=== PATIENT | male | born 1940 | race Caucasian/White ===

== ENCOUNTER 2019-06-15 07:21 | Day surgery (SDC) | payer OTHER ==
[~2019-06-15] VITALS: Ht 177.8 cm; Wt 85.0 kg
[2019-06-15] MEDS ORDERED: CARV25 PO (07:53)
[2019-06-15] MEDS ORDERED: Glucophage1000 MG PO (07:53)
[2019-06-15] MEDS ORDERED: ASPI81CH PO (07:54)
[2019-06-15] MEDS ORDERED: Prinivil10 MG PO (07:54)
[2019-06-15] MEDS ORDERED: EUTHYROX150 MCG PO (07:54)
[2019-06-15] MEDS ORDERED: COQ-10100 MG PO (07:55)
[2019-06-15] MEDS ORDERED: ATORVASTATIN CA10 MG PO (07:55)
[2019-06-15] MEDS ORDERED: PANT40 PO (07:55)
[2019-06-15] MEDS ORDERED: TADA10TA (07:56)
--- NOTE | 2019-06-15 14:21 | NUR ---
PT AND S/O VERBALIZES UNDERSTANDING WRITTEN AND VERBAL ORDERS. VSS. NADN. AIR FULLY DEFLATED FROM TR BAND. NO BLEEDING NOTED.
--- NOTE | 2019-06-15 14:43 | NUR ---
PT AMBULATES TO RESTROOM AND BACK WITHOUT DIFF. PT DRESSES SELF WITHOUT DIFF. PT TR BAND REMOVED. DOT DRESSING APPLIED WITH SPLINT/SLING IN PLACE. VSS. NADN. PT TO DC TO HOME VIA WC BY FAMILY.
== END 2019-06-15 15:13 | disposition home or self-care (01) ==
LOC: MHTC 07:21
PROC: B203YZZ Plain Radiography of Multiple Coronary Artery Bypass Grafts using Other Contrast (ICD-10-PCS; principal; 2019-06-15)
PROC: B201YZZ Plain Radiography of Multiple Coronary Arteries using Other Contrast (ICD-10-PCS; principal; 2019-06-15)
PROC: 4A023N7 Measurement of Cardiac Sampling and Pressure, Left Heart, Percutaneous Approach (ICD-10-PCS; principal; 2019-06-15)
PROC: B300YZZ Plain Radiography of Thoracic Aorta using Other Contrast (ICD-10-PCS; principal; 2019-06-15)
DX: I25.10 Atherosclerotic heart disease of native coronary artery without angina pectoris (principal); I25.810 Atherosclerosis of coronary artery bypass graft(s) without angina pectoris; I25.82 Chronic total occlusion of coronary artery; I13.0 Hypertensive heart and chronic kidney disease with heart failure and stage 1 through stage 4 chronic kidney disease, or unspecified chronic kidney disease; E11.22 Type 2 diabetes mellitus with diabetic chronic kidney disease; I50.20 Unspecified systolic (congestive) heart failure; N18.9 Chronic kidney disease, unspecified; I47.1 Supraventricular tachycardia; E66.3 Overweight; N52.9 Male erectile dysfunction, unspecified; I25.5 Ischemic cardiomyopathy; E78.5 Hyperlipidemia, unspecified; E03.9 Hypothyroidism, unspecified; Z79.82 Long term (current) use of aspirin; Z79.84 Long term (current) use of oral hypoglycemic drugs; Z79.899 Other long term (current) drug therapy; Z87.891 Personal history of nicotine dependence; Z68.26 Body mass index [BMI] 26.0-26.9, adult
CPT/HCPCS: 93455; 99152; 99153; C1769; C1894; J1644; J2250; J3010; J7030; Q9967

== ENCOUNTER 2020-06-23 21:46 | Inpatient (IN) | payer OTHER ==
[~2020-06-23] VITALS: Ht 175.3 cm; Wt 94.3 kg
[~2020-06-23 21:46] MED LIST: ASPI81CH PO; ATORVASTATIN CA10 MG PO; CARV25 PO; COQ-10100 MG PO; EUTHYROX150 MCG PO; METF500 PO; PANT40 PO; Prinivil10 MG PO; TADA10TA
[2020-06-23 22:02] LABS: BASOPHILS ABSOLUTE AUTO 0.08 K/mm3 (0.00-0.23); BASOPHILS PERCENT AUTO 1 % (0-2); EOSINOPHILS ABSOLUTE AUTO 0.18 K/mm3 (0.00-0.68); EOSINOPHILS PERCENT AUTO 2 % (0-6); Hematocrit 39.4 % (37.0-53.0); Hemoglobin 13.4 g/dL (13.5-17.5); IMMATURE GRAN ABSOLUTE AUTO 0.05 K/mm3 (0.00-0.10); IMMATURE GRAN PERCENT AUTO 1 % (0-1); LYMPHOCYTES ABSOLUTE AUTO 2.48 K/mm3 (0.84-5.20); LYMPHOCYTES PERCENT AUTO 31 % (21-46); MONOCYTES ABSOLUTE AUTO 0.78 K/mm3 (0.16-1.47); MONOCYTES PERCENT AUTO 10 % (4-13); Mean Corpuscular HGB 29.6 pg (26.0-34.0); Mean Corpuscular Volume 87 fL (80-100); Mean Platelet Volume 10.4 fL (9.1-12.4); NEUTROPHILS ABSOLUTE AUTO 4.37 K/mm3 (1.96-9.15); NEUTROPHILS PERCENT AUTO 55 % (41-73); Platelet Count 203 K/mm3 (150-400); RDW Coefficient Variation 12.7 % (11.7-14.2); RDW Standard Deviation 40.3 fL (35.1-46.3); Red Blood Cell Count 4.52 M/mm3 (4.30-5.90); White Blood Cell Count 7.94 K/mm3 (4.00-11.30)
[2020-06-23 22:16] LABS: International Normalized Ratio 1.04; Prothrombin Time Results 11.1 Sec (9.7-11.5)
[2020-06-23 22:20] LABS: Alanine Aminotransfer (ALT/SGP 29 U/L (12-78); Albumin, Blood 3.9 g/dL (3.4-5.0); Albumin/Globulin Ratio 1.3 (0.8-1.8); Alk Phos 60 U/L (50-136); Anion Gap 6 mmol/L (6-16); Aspartate Aminotrans (AST/SGOT 14 U/L (12-37); Bilirubin, Total 1.3 mg/dL (0.1-1.0); Blood Urea Nitrogen 25 mg/dL (8-24); Bun/Creatinine Ratio 19.8 (12.0-20.0); CO2, Blood 26 mmol/L (21-32); Calcium, Blood 9.4 mg/dL (8.5-10.1); Chloride, Blood 105 mmol/L (98-108); Creatinine, Blood 1.26 mg/dL (0.60-1.20); Globulin, Blood 3.1 g/dL (2.2-4.0); Glomerular Filtration Rate 58 (60-); Glucose, Blood 214 mg/dL (70-99); Potassium, Blood 4.1 mmol/L (3.5-5.5); Sodium, Blood 137 mmol/L (136-145)
[2020-06-23 23:06] LABS: Ethanol (Alcohol), Blood, Med <3 mg/dL
[2020-06-24] MEDS ORDERED: TRIA50 PO (00:23)
--- NOTE | 2020-06-24 02:40 | NUR ---
ASSUMED CARE NOTE: ASSUMED CARE OF PT AT 0240, RECEVIED REPORT FROM ZENOBIA MIRANDA. PT IS ALERT AND ORIENTED TO SELF, ABLE TO FOLLOW DIRECTIONS. PT HAS EXPRESSIVE APHASIA. WILL MOAN AND ANSWER YES/NO QUESTIONS USING HEAD GEASTURES. PT HAS RIGHT SIDE WEAKNESS, RIGHT SIDE FACIAL DROOP AND TWITCH. PT NODS YES WHEN ASKED IF HE HAS SENSATION TO RIGHT ARM AND LEG. NODS "YES" TO NUMBNESS IN RIGHT EXTREMITIES. PT IN SINUS CRISTIANA, HR IN THE 50-60'S. SBP IN THE 160'S .PT DENIES CHEST PAIN/ PAIN/NAUSEA AT THIS TIME. PT IS INCONTINENT OF URINE, CONDOM CATH PLACED TO PREVENT SKIN BREAKDOWN AND TO OBTAIN TOX SCREEN. BED AT LOWEST LEVEL, CALL LIGHT WITHIN REACH. BED ALARM ON. PT REMINDED TO STAY IN BED, TO PREVENT FALLS. WILL CONTINUE TO MONITOR.
[2020-06-24 03:35] LABS: BASOPHILS ABSOLUTE AUTO 0.06 K/mm3 (0.00-0.23); BASOPHILS PERCENT AUTO 1 % (0-2); EOSINOPHILS ABSOLUTE AUTO 0.09 K/mm3 (0.00-0.68); EOSINOPHILS PERCENT AUTO 1 % (0-6); Hemoglobin 13.5 g/dL (13.5-17.5); IMMATURE GRAN ABSOLUTE AUTO 0.06 K/mm3 (0.00-0.10); IMMATURE GRAN PERCENT AUTO 1 % (0-1); LYMPHOCYTES ABSOLUTE AUTO 1.74 K/mm3 (0.84-5.20); LYMPHOCYTES PERCENT AUTO 23 % (21-46); MONOCYTES ABSOLUTE AUTO 0.69 K/mm3 (0.16-1.47); MONOCYTES PERCENT AUTO 9 % (4-13); Mean Corpuscular HGB 29.2 pg (26.0-34.0); Mean Corpuscular HGB Conc 33.8 g/dL (31.5-36.5); Mean Corpuscular Volume 86 fL (80-100); Mean Platelet Volume 10.5 fL (9.1-12.4); NEUTROPHILS ABSOLUTE AUTO 5.08 K/mm3 (1.96-9.15); NEUTROPHILS PERCENT AUTO 66 % (41-73); Platelet Count 204 K/mm3 (150-400); RDW Coefficient Variation 12.8 % (11.7-14.2); Red Blood Cell Count 4.63 M/mm3 (4.30-5.90); White Blood Cell Count 7.72 K/mm3 (4.00-11.30)
[2020-06-24 03:52] LABS: Anion Gap 10 mmol/L (6-16); Blood Urea Nitrogen 24 mg/dL (8-24); Bun/Creatinine Ratio 20.5 (12.0-20.0); CO2, Blood 25 mmol/L (21-32); Calcium, Blood 9.1 mg/dL (8.5-10.1); Chloride, Blood 104 mmol/L (98-108); Creatinine, Blood 1.17 mg/dL (0.60-1.20); Glomerular Filtration Rate >60 (60-); Glucose, Blood 198 mg/dL (70-99); Potassium, Blood 4.2 mmol/L (3.5-5.5); Sodium, Blood 139 mmol/L (136-145)
[2020-06-24 03:53] LABS: CHOL/HDL RATIO 2.7; Cholesterol 131 mg/dL (50-200); HDL Cholesterol 49 mg/dL (>39); LDL/HDL RATIO 1.2; Low Density Lipoprotein Chol 57 mg/dL (0-110); Triglycerides 126 mg/dL (30-160); Very Low Density Lipoprot Chol 25 mg/dL (6-32)
--- NOTE | 2020-06-24 04:14 | NUR ---
PT SAYING A FEW WORDS " YEA, NO, OKAY" PT FACIAL DROOP LESS NOTICABLE. RIGHT FACE TWICHES WHEN PT SMILES. RIGHT ARM STRENGTH INCREASING.
--- NOTE | 2020-06-24 05:52 | NUR ---
SHIFT SUMMARY: SEE PREVIOUS NOTES. PRECEDEX HAS BEEN OFF SINCE 0000. PT HAS BEEN APPROPRIATE. USING CALL LIGHT, WILL GET UP OUT OF BED OCCASIONALLY TO OBTAIN WATER. BUILT A TRUST WITH PATIENT ABLE TO ADMINISTER MEDS, W/O DIFFICULTY. SHOWED PT EVERY MEDICATION AND EXPLAINED HOW THEY WORK, HE WAS AGREEABLE TO ALL. THIS NURSE HAD TO OPEN EACH MEDICATION IN FRONT OF PATIENT AND LET HIM SEE ALL LABELS. PT WALKED TO BEDSIDE TOILET, STEADY GAIT. PT HAS BEEN ON RA WITH SPO2 ABOVE 90 PERCENT. BP STABLE. PT HAS BEEN IN NSR WITH HR IN THE 80'S, UP THE 110 WHEN AMBULATING. WILL CONTINUE TO MONITOR PT UNTIL REPORT IS GIVEN TO ONCOMING SHIFT.
--- NOTE | 2020-06-24 06:15 | NUR ---
ASSUMED CARE NOTE: SEE PREVIOUS NOTES. NO FURTHER CHANGES TO NEURO STATUS. PT HAS BEEN ON RA WITH SPO2 ABOVE 90% HAS BEEN IN NSR WITH HR IN THE 50-60'S, SBP 150-160'S. PT DENIES CP. NO SIGNS/SYMPTOMS OF BLEEDING. -
[2020-06-24 07:17] LABS: U Amphetamine Screen Not Detected; U Barbituate Screen Not Detected; U Benzodiazapine Screen Not Detected; U Buprenorphine Screen Not Detected; U Cannabinoids Screen Not Detected; U Cocaine Screen Not Detected; U Methadone Screen Not Detected; U Methamphetamine Screen Not Detected; U Opiates Screen Not Detected; U Oxycodone Screen Not Detected; U Phencyclidine Screen Not Detected; U Propoxyphene Screen Not Detected
--- NOTE | 2020-06-24 07:30 | NUR ---
ASSUMED CARE: PT RESTING IN BED, RIGHT SIDED FACIAL DROOP AND RIGHT SIDED WEAKNESS OF ARM AND LEG NOTED. PT FOLLOWS INSTRUCTIONS ABLE. UNABLE TO SPEAK MORE THAN SOUNDS AND A FEW WORDS. NSR ON TELE, RA AT THIS TIME. CONDOM CATH IN PLACE AT THIS TIME. BED ALARM IN PLACE, CALL LIGHT IN REACH, BED IN LOW POSITION. FALL RISK LIGHT ON WELL. NO ACUTE NEEDS OR CONCERNS AT THIS TIME.
--- NOTE | 2020-06-24 11:15 | NUR ---
Echocardiogram completed.
--- NOTE | 2020-06-24 14:59 | NUR ---
PT TAKEN TO MRI AT THIS TIME BY TRANSPORT STAFF AND NURSE ESCORT
--- NOTE | 2020-06-24 15:25 | NUR ---
Pt was accompanied to MRI and back again to the unit. Upon return, his was still in the room. Pt vital signs and ECG monitoring reconnected to the pt. He nodded when asked if he was comfortable. asked if he could have some water to drink, commenting that his mouth appearted dry. I explained that he may not be able to swallow safely, but that I could do some oral swabs for his relief of dry mouth. Oral care done per usual fashion with chlorohexidine. Pt made an uncomfortable face, and I asked if he wanted me to continue, and he stated, "No". seemed encouraged to hear him speak. She stated that she lives in [facility] so would be going home soon before it becomes dark. Primary RN Alisha informed of pt's return to room and care given.
--- NOTE | 2020-06-24 15:30 | NUR ---
PT RETURNED FROM MRI
--- NOTE | 2020-06-24 16:30 | NUR ---
HEMP FIBER TAKER OFF ASKED THIS RN TO ASK FOR STATUS CHANGE DUE TO NO CHANGE IN STATUS OR NEURO CHECKS. DR LINDSAY ORDERED PCU STATUS THEN AFTER REVIEWING MRI AND DISCUSSING WITH DR CUI, STATED TO HAVE PT REMAIN ICU STATUS. HEMP FIBER TAKER OFF AND HEEL BOOM OPERATOR AWARE THAT PT IS STILL ICU STATUS.
--- NOTE | 2020-06-24 18:00 | NUR ---
SHIFT SUMMARY: PT REMAINS ICU STATUS S/P TPA. NEURO CHECKS IMPROVED SLIGHTLY THIS SHIFT. WORKED WITH PT/OT AND HAD SOME WEAKNESS TO RIGHT SIDE AND RIGHT SIDED FACIAL DROOP BUT SEEMS IMPROVED FROM THIS AM. POSSIBLE STATUS CHANGE AFTER 24 HOURS POST TPA.
--- NOTE | 2020-06-24 18:39 | NUR ---
PT'S BPS HAVE BEEN TRENDING GREATER THAN 180 SYSTOLIC. HYDRALAZINE GIVEN PER ORDERS WITH NO CHANGE. CALL TO DR LINDSAY TO GET NEW ANTIHYPERTENSIVE. DR LINDSAY TO REVIEW WITH DR CUI AND ORDER FURTHER MEDS.
--- NOTE | 2020-06-24 20:51 | NUR ---
SHIFT ASSESSMENT ASSUMED CARE OF PT @ 1900, REPORT RECV'D FROM BRANDI MIRANDA. PT ALERT, RESTING IN BED. ABLE TO FOLLOW SIMPLE COMMANDS, SHAKES HEAD YES/NO AND MOANS. PTS RIGHT ARM AND LEG CONTINUE TO BE WEAKER THAN LEFT. RIGHT SIDED FACIAL DROOP. NSR ON THE VOCATIONAL GUIDANCE COUNSELOR. BP BORDERLINE HYPERTENSIVE, WILL MEDICATE PER ORDERS FOR HTN. INCONTINENT OF URINE AND STOOL, DEPENDS IN PLACE. BED LOW, CALL LIGHT IN REACH, WILL CONTINUE TO MONITOR.
[2020-06-25 04:05] LABS: BASOPHILS ABSOLUTE AUTO 0.04 K/mm3 (0.00-0.23); BASOPHILS PERCENT AUTO 0 % (0-2); EOSINOPHILS ABSOLUTE AUTO 0.05 K/mm3 (0.00-0.68); EOSINOPHILS PERCENT AUTO 1 % (0-6); Hematocrit 42.8 % (37.0-53.0); Hemoglobin 13.9 g/dL (13.5-17.5); IMMATURE GRAN ABSOLUTE AUTO 0.05 K/mm3 (0.00-0.10); IMMATURE GRAN PERCENT AUTO 1 % (0-1); LYMPHOCYTES ABSOLUTE AUTO 1.48 K/mm3 (0.84-5.20); LYMPHOCYTES PERCENT AUTO 14 % (21-46); MONOCYTES ABSOLUTE AUTO 1.02 K/mm3 (0.16-1.47); MONOCYTES PERCENT AUTO 9 % (4-13); Mean Corpuscular HGB 28.4 pg (26.0-34.0); Mean Corpuscular HGB Conc 32.5 g/dL (31.5-36.5); Mean Corpuscular Volume 87 fL (80-100); Mean Platelet Volume 11.2 fL (9.1-12.4); NEUTROPHILS ABSOLUTE AUTO 8.32 K/mm3 (1.96-9.15); NEUTROPHILS PERCENT AUTO 76 % (41-73); Platelet Count 198 K/mm3 (150-400); RDW Coefficient Variation 12.9 % (11.7-14.2); RDW Standard Deviation 41.1 fL (35.1-46.3); White Blood Cell Count 10.96 K/mm3 (4.00-11.30)
[2020-06-25 04:09] LABS: Anion Gap 9 mmol/L (6-16); Blood Urea Nitrogen 19 mg/dL (8-24); Bun/Creatinine Ratio 17.3 (12.0-20.0); CO2, Blood 24 mmol/L (21-32); Calcium, Blood 8.6 mg/dL (8.5-10.1); Chloride, Blood 107 mmol/L (98-108); Glomerular Filtration Rate >60 (60-); Glucose, Blood 183 mg/dL (70-99); Potassium, Blood 3.6 mmol/L (3.5-5.5); Sodium, Blood 140 mmol/L (136-145)
--- NOTE | 2020-06-25 06:18 | NUR ---
SHIFT SUMMARY PT REMAINS ALERT, NO NEUROLOGICAL CHANGES. CONTINUES TO BE WEAK ON THE RIGHT SIDE. FOLLOWING COMMANDS, ABLE TO ASSIST WITH TURNS. NODS HEAD YES/NO APPROPRIATELY, UNABLE TO RESPOND VERBALLY. WILL MOAN OCCASIONALLY. SBP <180, MEDICATED WITH PRN LABETOLOL. BED IN LOW POSITION, CALL LIGHT IN REACH. WILL CONTINUE TO MONITOR.
--- NOTE | 2020-06-25 08:45 | NUR ---
Dr Rubi in to see patient. States pt may be medical floor status. See shift assessment for full assessment.
--- NOTE | 2020-06-25 18:45 | NUR ---
SUMMARY At this time, pt is medical floor status with telemetry in case he requires IV labetalol. Pt is alert. Follows commands. Answers questions by nodding head to indicate yes/no. Pleasant and cooperative with care. Remains strict NPO. Pt on room air. SR per monitor. BP high but IV antihypertensives not indicated. Incontinent of urine/stool. Attends C/D/I at this time. Will continue to closely monitor until care handoff and bedside report with oncoming RN.
--- NOTE | 2020-06-25 21:30 | NUR ---
ASSUMED PT CARE FROM RUTH OLVERA AT 1915 PT RESTING IN BED. PT NOTED TO HAVE APHASIA; HOWEVER, IT APPEARS PT UNDERSTANDS WHAT IS BEING SAID. ABLE TO ANSWER YES/NO QUESTIONS. CLINIMIX INFUSING AT 100MLS/HR THROUGH 18G PERIPHERAL IV. PT NOTED TO BE INCONTINENT. ATTEND AND LINEN CHANGE PERFORMED AT CHANGE OF SHIFT. CONDOM CATHETER PLACED TO PREVENT MOISTURE ASSOCIATED SKIN DAMAGE. PT ABLE TO HELP REPOSITION SELF IN BED. ABLE TO SHIFT OWN WEIGHT. OVERALL SKIN IS INTACT WITH SCATTERED ABRASIONS TO BLE'S. CALL LIGHT WITHIN REACH WILL CONTINUE TO REASSESS PT'S NEEDS.
[2020-06-26 03:27] LABS: BASOPHILS ABSOLUTE AUTO 0.04 K/mm3 (0.00-0.23); BASOPHILS PERCENT AUTO 0 % (0-2); EOSINOPHILS ABSOLUTE AUTO 0.06 K/mm3 (0.00-0.68); EOSINOPHILS PERCENT AUTO 1 % (0-6); Hematocrit 37.3 % (37.0-53.0); Hemoglobin 12.4 g/dL (13.5-17.5); IMMATURE GRAN ABSOLUTE AUTO 0.04 K/mm3 (0.00-0.10); IMMATURE GRAN PERCENT AUTO 0 % (0-1); LYMPHOCYTES ABSOLUTE AUTO 1.53 K/mm3 (0.84-5.20); LYMPHOCYTES PERCENT AUTO 16 % (21-46); MONOCYTES ABSOLUTE AUTO 1.19 K/mm3 (0.16-1.47); MONOCYTES PERCENT AUTO 12 % (4-13); Mean Corpuscular HGB 29.1 pg (26.0-34.0); Mean Corpuscular HGB Conc 33.2 g/dL (31.5-36.5); Mean Corpuscular Volume 88 fL (80-100); Mean Platelet Volume 10.3 fL (9.1-12.4); NEUTROPHILS ABSOLUTE AUTO 6.84 K/mm3 (1.96-9.15); NEUTROPHILS PERCENT AUTO 71 % (41-73); Platelet Count 178 K/mm3 (150-400); RDW Coefficient Variation 12.8 % (11.7-14.2); RDW Standard Deviation 41.1 fL (35.1-46.3); Red Blood Cell Count 4.26 M/mm3 (4.30-5.90)
[2020-06-26 03:50] LABS: Anion Gap 6 mmol/L (6-16); Blood Urea Nitrogen 23 mg/dL (8-24); Bun/Creatinine Ratio 22.5 (12.0-20.0); CO2, Blood 25 mmol/L (21-32); Calcium, Blood 8.7 mg/dL (8.5-10.1); Chloride, Blood 108 mmol/L (98-108); Creatinine, Blood 1.02 mg/dL (0.60-1.20); Glomerular Filtration Rate >60 (60-); Glucose, Blood 222 mg/dL (70-99); Potassium, Blood 3.8 mmol/L (3.5-5.5); Sodium, Blood 139 mmol/L (136-145)
--- NOTE | 2020-06-26 05:31 | NUR ---
END OF SHIFT SUMMARY PT HAS SLEPT MOST OF NIGHT. LINEN CHANGED TWICE D/T INCONTINENCE; CONDOM CATH PLACED TWICE IN ORDER TO KEEP SKIN CLEAN AND DRY. PT CONTINUES TO HAVE RIGHT SIDED WEAKNESS AND FACIAL DROOP. CLINIMIX INFUSING AT 100MLS/HR. 2 UNITS OF REGULAR INSULIN GIVEN X2 THIS SHIFT. SBP 160'S; NO NEED FOR PRN LABETOLOL. PT REMAINS NPO WITH Q4 ORAL CARES PERFORMED. VERY PLEASANT AND COOPERATIVE WITH CARES. BED ALARM REMAINS ON. WILL CONTINUE TO MONITOR UNTIL REPORT IS HANDED OFF TO ONCOMING RN.
--- NOTE | 2020-06-26 07:46 | NUR ---
Assumed care at 0700. Bedside report recieved from María MIRANDA. Pt alert. Follows directions. Answers yes/no questions by nodding head. Does not use words to communicate. Right sided weakness. Pt strict NPO. Lungs clear t/o. SpO2 90% or greater on room air. Pt has moist, loose cough. Unable to expectorate when instructed to cough. SR per monitor. BP stable. Bed in lowest position. Call light in reach. Bed alarm on.
--- NOTE | 2020-06-26 15:00 | NUR ---
Pt's spouse visiting at bedside. This RN discussed physical therapy's recommendations for patient to go to IRU, which is in [place], per personal caregiver Theresa MIRANDA. Pt's spouse states she is more interested in pt going home with home health. This RN stated this would be helpful for the patient but pt will not reach his full potential as he could with IRU. After about an hour of visiting with the patient, spouse states she would be sad about him going to [place], because she would not be able to visit him, but ultimately "I want to do what is best for his recovery". Pt's spouse acknowledges that patient is far from his pre-CVA baseline and will require a lot of therapy. This RN reassured spouse that she and the patient have more time to think about this decision, but going to IRU will give the patient the best chance to reach his maximum potential. While spouse was in room with the patient, pt's wet cough was discussed. This RN educated patient's spouse on helping the patient use flutter valve to encourage cough and expectoration. Pt used flutter valve held by this RN. Pt's spouse vebalized understanding and agreed to help patient with this task, however this RN did not observe pt's spouse helping patient to accomplish this task.
--- NOTE | 2020-06-26 19:05 | NUR ---
SUMMARY Pt OOB three times this shift. Once for shower and twice for chair. Pt remains alert, follows commands, and communicates by nodding head to indicate yes/no. Pt has audible rattles with respirations, suctioned mouth with yankauer- unable to retrieve secretions. This RN worked with patient several times to deep breathe, cough, and use IS/flutter valve. Pt uses flutter valve without difficulty but struggles to use incentive spirometer, respirations shallow. This RN placed call to Dr Mendoza to update and notify of low grade temp. CXR to be obtained and scopalamine patch to be placed. Inquired about ABX, provider does not want to start antibiotics at this time. Pt remains incontinent of urine and stool. SR per monitor. Plan for pt to transfer to room 301
--- NOTE | 2020-06-26 19:42 | NUR ---
Pt transferred to room 301 accompanied by this RN and PCT [place]. Scopolamine patch has not arrived from pharmacy prior to pt transfer. Oncoming nurse, Faustino, aware that pt needs patch. This RN notified pharmacy of pt's new location. Chart, medications, and belongings tranferred with patient. Clinimix and lipids continued on transfer.
--- NOTE | 2020-06-26 19:56 | NUR ---
ICU 05 TRANSFER. JANAE ASSISTANT DEPARTMENT MANAGER PRESENT IN ROOM. PATIENT ARRIVED VIA W/C. PERSONAL BELONGINGS, CHART, AND MEDICATION SENT. CLINIMIX-LIPIDS INFUSING. NPO AND NON-VERBAL USING HEAD NODS FOR YES/NO.
--- NOTE | 2020-06-26 22:35 | NUR ---
TRANSERM-SCOP PATCH ORDERED BY PHARMACOMETRICIAN JANAE 18:40 FOR THE MEDICAL FLOOR. PHARMACY HAS NOT SENT THE PATCH AFTER THREE VERBAL ATTEMPTS AND TWO FAX. STILL PENDING.
--- NOTE | 2020-06-26 22:52 | NUR ---
PHARMACY SENT TRANSERM-SCOP PATCH JUST OVER FOUR HOURS LATE FROM INITIAL ORDER BY RESOLUTION AGENT JANAE.
--- NOTE | 2020-06-27 03:43 | NUR ---
SHIFT SUMMARY PATIENT HAD NO ACUTE CHANGES OBSERVED. AXOX 3 NON-VERBAL USING HEAD NODS FOR YES/NO QUESTIONS. NPO. PIVS REMAINS INTACT. IV CLINIMIX INFUSING AT 80 mL/HR. LIPIDS FINISHED INFUSING AT 25 mL/HR. CONE WINDER REPORTS SB 58. TRANSERM-SCOP PATCH PLACED PER EMAR. CBG Q6 205 FOR MIDNIGHT. PERMISSIVE HYPERTENSION 169/80. DENIES PAIN, SOB, AND N/V. AFEBRILE. CALL LIGHT IN REACH. BED IN LOWEST POSITION AND ALARM ACTIVATED. WILL CONTINUE TO MONITOR UNTIL DAY SHIFT NURSE ASSUMES CARE.
[2020-06-27 05:07] LABS: BASOPHILS ABSOLUTE AUTO 0.06 K/mm3 (0.00-0.23); BASOPHILS PERCENT AUTO 1 % (0-2); EOSINOPHILS ABSOLUTE AUTO 0.17 K/mm3 (0.00-0.68); EOSINOPHILS PERCENT AUTO 2 % (0-6); Hematocrit 37.9 % (37.0-53.0); Hemoglobin 12.7 g/dL (13.5-17.5); IMMATURE GRAN ABSOLUTE AUTO 0.06 K/mm3 (0.00-0.10); IMMATURE GRAN PERCENT AUTO 1 % (0-1); LYMPHOCYTES ABSOLUTE AUTO 1.56 K/mm3 (0.84-5.20); LYMPHOCYTES PERCENT AUTO 17 % (21-46); MONOCYTES ABSOLUTE AUTO 1.08 K/mm3 (0.16-1.47); MONOCYTES PERCENT AUTO 12 % (4-13); Mean Corpuscular HGB 29.9 pg (26.0-34.0); Mean Corpuscular HGB Conc 33.5 g/dL (31.5-36.5); Mean Corpuscular Volume 89 fL (80-100); Mean Platelet Volume 11.1 fL (9.1-12.4); NEUTROPHILS ABSOLUTE AUTO 6.25 K/mm3 (1.96-9.15); NEUTROPHILS PERCENT AUTO 68 % (41-73); Platelet Count 169 K/mm3 (150-400); RDW Coefficient Variation 12.7 % (11.7-14.2); RDW Standard Deviation 41.1 fL (35.1-46.3); Red Blood Cell Count 4.25 M/mm3 (4.30-5.90); White Blood Cell Count 9.18 K/mm3 (4.00-11.30)
[2020-06-27 05:24] LABS: Anion Gap 8 mmol/L (6-16); Blood Urea Nitrogen 26 mg/dL (8-24); Bun/Creatinine Ratio 28.2 (12.0-20.0); CO2, Blood 23 mmol/L (21-32); Calcium, Blood 8.8 mg/dL (8.5-10.1); Chloride, Blood 106 mmol/L (98-108); Creatinine, Blood 0.92 mg/dL (0.60-1.20); Glomerular Filtration Rate >60 (60-); Glucose, Blood 219 mg/dL (70-99); Magnesium, Blood 1.9 mg/dL (1.6-2.4); Phosphorus, Blood 3.1 mg/dL (2.5-4.9); Potassium, Blood 3.7 mmol/L (3.5-5.5); Sodium, Blood 137 mmol/L (136-145)
--- NOTE | 2020-06-27 19:14 | NUR ---
SHIFT SUMMARY: NO ACUTE EVENTS, NO CHANGES TO NEURO EXAM. ATTEMPTS TO SPEAK, IS ABLE TO ANSWER YES OR NO QUESTIONS. NPO, RECEIVING CLINIMIX. AMBULATED WITH PHYSICAL THERAPY TODAY, 1 PERSON ASSIST WITH GAIT BELT. TOLERATING ORAL CARE. DENIED PAIN.
[2020-06-28 04:35] LABS: BASOPHILS ABSOLUTE AUTO 0.05 K/mm3 (0.00-0.23); BASOPHILS PERCENT AUTO 1 % (0-2); EOSINOPHILS ABSOLUTE AUTO 0.21 K/mm3 (0.00-0.68); EOSINOPHILS PERCENT AUTO 2 % (0-6); Hematocrit 38.3 % (37.0-53.0); Hemoglobin 12.9 g/dL (13.5-17.5); IMMATURE GRAN ABSOLUTE AUTO 0.08 K/mm3 (0.00-0.10); IMMATURE GRAN PERCENT AUTO 1 % (0-1); LYMPHOCYTES ABSOLUTE AUTO 1.27 K/mm3 (0.84-5.20); LYMPHOCYTES PERCENT AUTO 14 % (21-46); MONOCYTES ABSOLUTE AUTO 0.96 K/mm3 (0.16-1.47); MONOCYTES PERCENT AUTO 11 % (4-13); Mean Corpuscular HGB 29.3 pg (26.0-34.0); Mean Corpuscular HGB Conc 33.7 g/dL (31.5-36.5); Mean Corpuscular Volume 87 fL (80-100); NEUTROPHILS ABSOLUTE AUTO 6.43 K/mm3 (1.96-9.15); NEUTROPHILS PERCENT AUTO 71 % (41-73); Platelet Count 189 K/mm3 (150-400); RDW Coefficient Variation 12.4 % (11.7-14.2); RDW Standard Deviation 39.5 fL (35.1-46.3); Red Blood Cell Count 4.41 M/mm3 (4.30-5.90)
[2020-06-28 04:51] LABS: Anion Gap 9 mmol/L (6-16); Blood Urea Nitrogen 27 mg/dL (8-24); Bun/Creatinine Ratio 29.9 (12.0-20.0); CO2, Blood 23 mmol/L (21-32); Calcium, Blood 8.7 mg/dL (8.5-10.1); Chloride, Blood 104 mmol/L (98-108); Glomerular Filtration Rate >60 (60-); Glucose, Blood 232 mg/dL (70-99); Magnesium, Blood 1.9 mg/dL (1.6-2.4); Phosphorus, Blood 3.1 mg/dL (2.5-4.9); Potassium, Blood 3.7 mmol/L (3.5-5.5); Sodium, Blood 136 mmol/L (136-145)
--- NOTE | 2020-06-28 05:42 | NUR ---
OUTSIDE PLANT SUPERVISOR SUMMARY NO ACUTE CHANGES THIS SHIFT. PT AAOX3, ABLE TO SPEAK SOME ONE WORD ANSWERS (MOSTLY YES/NO) BUT MOSTLY NODS HEAD TO ANSWER. RIGHT SIDE WEAKNESS STILL NOTED, VERY LITTLE STRENGTH ON THAT SIDE. REMAINS NPO AND ON IV CLINIMIX AND LIPIDS. CBG Q6 AVG LOW 200'S TONIGHT. PT DENIES PAIN, SOB, CP. VSS, WILL CONTINUE TO MONITOR.
--- NOTE | 2020-06-28 10:31 | NUR ---
PATIENT NO LONGER NPO. PER T.O. FROM DR. LINDSAY, CHANGED BLOOD GLUCOSE CHECKS TO ACHS ALONG WITH INSULIN SCHEDULE. EMAR UPDATED.
--- NOTE | 2020-06-28 10:32 | NUR ---
NEURO CHECK FREQUENCY RECEIVED T.O. FROM DR. LINDSAY TO CHANGE FREQUENCY OF NEURO CHECKS TO Q8H
--- NOTE | 2020-06-28 17:38 | NUR ---
Shift Summary A/O. Pleasant and cooperative. visited. 1-2p TQ2. Neuro assesment remains unchanged. Worked with PT today. Tele: SR first degree BBB @ 63. Continues to have R sided weakness, answers questions with nods, hand gestures, and grunts. Patient tolerating PO intake, diet changed to Puree and feeder. Denies pain, nausea, vomiting, shortness of breath. Blood sugars ACHS. PO intake still minimal. No acute changes, WCTM.
--- NOTE | 2020-06-28 19:20 | NUR ---
AWAKE. WATCHING TV. DENIED PAIN. DENIED LOSS OF FEELING IN ALL 4 EXT, BUT WHEN REQUESTIONED RE RIGHT ARM, SEEMED TO ACKNOWLEGDE SOME LOSS OF RIGHT ARM. CALL LIGHT IN REACH
--- NOTE | 2020-06-29 03:17 | NUR ---
SHIFT SUMMARY HAS BEEN RESTING QUIETLY WITH FEW INTERRUPTIONS. TPN INFUSING PER MD ORDERS, LIPIDS FINISHED INFUSING. RIGHT SIDE REMAINS FLACCID. DENIED PAIN WHEN ASKED. CALL LIGHT IN REACH.
--- NOTE | 2020-06-29 04:13 | NUR ---
ATTEMPTED TO CLIMB OUT OF BED, ROLLED OVER TO THE EDGE, SETTING OFF ALARM, STAFF CAUGHT HIM BEFORE HE FELL OUT OF BED. PT REPOSITIONED BACK IN BED AND LAUGHED WHEN CONFRONTED RE TRYING TO GET OUT OF BED. RAIL UP ON AFFECTED SIDE. BED ALARM BACK ON AND CALL LIGHT IN REACH
[2020-06-29 04:41] LABS: BASOPHILS ABSOLUTE AUTO 0.08 K/mm3 (0.00-0.23); BASOPHILS PERCENT AUTO 1 % (0-2); EOSINOPHILS PERCENT AUTO 2 % (0-6); Hematocrit 39.6 % (37.0-53.0); Hemoglobin 13.3 g/dL (13.5-17.5); IMMATURE GRAN PERCENT AUTO 1 % (0-1); LYMPHOCYTES ABSOLUTE AUTO 1.35 K/mm3 (0.84-5.20); LYMPHOCYTES PERCENT AUTO 15 % (21-46); MONOCYTES ABSOLUTE AUTO 1.02 K/mm3 (0.16-1.47); MONOCYTES PERCENT AUTO 11 % (4-13); Mean Corpuscular HGB 28.9 pg (26.0-34.0); Mean Corpuscular HGB Conc 33.6 g/dL (31.5-36.5); Mean Corpuscular Volume 86 fL (80-100); Mean Platelet Volume 10.9 fL (9.1-12.4); NEUTROPHILS ABSOLUTE AUTO 6.53 K/mm3 (1.96-9.15); NEUTROPHILS PERCENT AUTO 70 % (41-73); Platelet Count 197 K/mm3 (150-400); RDW Coefficient Variation 12.4 % (11.7-14.2); RDW Standard Deviation 38.7 fL (35.1-46.3); White Blood Cell Count 9.28 K/mm3 (4.00-11.30)
[2020-06-29 04:58] LABS: Anion Gap 11 mmol/L (6-16); Blood Urea Nitrogen 26 mg/dL (8-24); Bun/Creatinine Ratio 29.6 (12.0-20.0); CO2, Blood 21 mmol/L (21-32); Calcium, Blood 8.7 mg/dL (8.5-10.1); Chloride, Blood 102 mmol/L (98-108); Creatinine, Blood 0.88 mg/dL (0.60-1.20); Glomerular Filtration Rate >60 (60-); Glucose, Blood 254 mg/dL (70-99); Magnesium, Blood 1.9 mg/dL (1.6-2.4); Phosphorus, Blood 2.8 mg/dL (2.5-4.9); Potassium, Blood 3.6 mmol/L (3.5-5.5); Sodium, Blood 134 mmol/L (136-145)
--- NOTE | 2020-06-29 10:34 | NUR ---
MEDS CHANGED TO PO PATIENT IS NOW ON PUREE DIET. RECEIVED T.O. FROM DR. CARBAJAL TO CHANGED IL ASPIRIN TO PO AND IV LEVOTHYROXINE TO PO. ORDERS UPDATED.
--- NOTE | 2020-06-29 18:39 | NUR ---
Shift Summary Patient able to follow directions. A/O, when speaking in sentences, patient mumbles. Yes/No responses are clear. Patient states no feeling to R arm except pain when pricking with lancet for blood sugar checks. 1-2p change and reposition. Tele: SR 67 PVC's First Degree BBB. New scopolamine patch applied to L ear. Movement in R leg improved some compared to yesterday. ROM done to R extremities. Appetite remains minimal. Continuous TPN @ 96. visited, update provided. Denies pain, nausea. Puree diet, feeder. WCTM.
--- NOTE | 2020-06-29 19:13 | NUR ---
AWAKE AT ROUNDING. TPN INFUSING AT 96 ML/HR PER MD ORDERS. HOB ELEVATED, RESPS EVEN. INSTRUCTED NOT TO ATTEMPT TO CLIMB OUT OF BED - TO USE CALL LIGHT FOR ASSIST. PT LAUGHED. CALL LIGHT IN REACH. BED ALARM ON.
--- NOTE | 2020-06-30 02:57 | NUR ---
SHIFT SUMMARY HAS BEEN RESTING QUIETLY WITH FEW INTERRUPTIONS. AWAKENED FOR INCONTINENCE CARE AND REPOSITIONING. RIGHT ARM ELEVETED ON PILLOW. TPN INFUSING AT 96 ML/HR PER MD ORDERS. NO NOTED ATTEMPTS TO CLIMB OUT OF BED. CALL LIGHT IN REACH. NO NOTED CHANGE IN NEURO ASSESSMENT THIS SHIFT.
[2020-06-30 05:04] LABS: Anion Gap 7 mmol/L (6-16); Blood Urea Nitrogen 25 mg/dL (8-24); Bun/Creatinine Ratio 27.9 (12.0-20.0); CO2, Blood 24 mmol/L (21-32); Calcium, Blood 8.5 mg/dL (8.5-10.1); Chloride, Blood 103 mmol/L (98-108); Glomerular Filtration Rate >60 (60-); Glucose, Blood 248 mg/dL (70-99); Sodium, Blood 134 mmol/L (136-145)
--- NOTE | 2020-06-30 14:28 | NUR ---
permission to provide care do rojas [facility] [place] student nurse recieved permission to provide care on 06/30/2020
--- NOTE | 2020-06-30 20:40 | NUR ---
AWAKE. TPN INFUSING AT 96 ML/HR. DENIES PAIN. CALL LIGHT IN REACH. INSTRUCTED TO USE CALL LIGHT.
--- NOTE | 2020-07-01 03:21 | NUR ---
SHIFT SUMMARY HAS BEEN RESTING QUIETLY WITH OCCASIONAL AWAKENINGS AFTER HS. SAID AWAKENINGS INCLUDED REPOSITOINING, CLEANING POST INCONT OF URINE AND LINEN CHANGES. NO NOTED ATTEMPTS TO GET OUT OF BED WITHOUT ASSIST. TPN CONTINUES TO INFUSE AT 96 ML/HR FOR NUTRITION. HOB REMAINS ELEVATED FOR COMFORT. CALL LIGHT IN REACH. NO NOTED CHANGES IN NEURO ASSESSMENTS FROM THAT OF 24 HR AGO.
[2020-07-01 05:08] LABS: Anion Gap 9 mmol/L (6-16); Blood Urea Nitrogen 27 mg/dL (8-24); Bun/Creatinine Ratio 28.1 (12.0-20.0); CO2, Blood 24 mmol/L (21-32); Calcium, Blood 8.8 mg/dL (8.5-10.1); Chloride, Blood 102 mmol/L (98-108); Creatinine, Blood 0.96 mg/dL (0.60-1.20); Glomerular Filtration Rate >60 (60-); Glucose, Blood 254 mg/dL (70-99); Potassium, Blood 4.1 mmol/L (3.5-5.5); Sodium, Blood 135 mmol/L (136-145)
--- NOTE | 2020-07-01 18:50 | NUR ---
PT NPO AFTER MODIFIED BARIUM SWALLOW, DR CUI SPOKE WITH SPOUSE REGARDING PEG TUBE PLACEMENT, GI CONSULT CALLED TO DR HUA. PT REMAINS ON PPN AT 96ML/HR. NO ACUTE CHANGES NOTED. WILL CONTINUE TO MONITOR AND REPORT TO ONCOMING RN
--- NOTE | 2020-07-01 20:45 | NUR ---
BP 168/108. ORDERS FOR BP MED ARE TO HOLD MED UNTIL SBP 180. WILL CONTINUE TO MONITOR. ASYMPTOMATIC AT THIS TIME. CALL LIGHT IN REACH, TPN INFUSING.
--- NOTE | 2020-07-02 03:36 | NUR ---
SHIFT SUMMARY HAS BEEN RESTING QUIETLY, NO NOTED ATTEMPTS TO GET OUT OF BED. PPN INFUSING AT 96 ML/HR. HOB REMAINS ELEVATED FOR COMFORT. NOTE OCCASIONAL EXP WHEEZE. REPOSITOINED AND CHANGED WHEN INCONT OF URINE, ETC. CURRENTLY RESTING QUIETLY WITH CALL LIGHT IN REACH
[2020-07-02 04:48] LABS: BASOPHILS ABSOLUTE AUTO 0.11 K/mm3 (0.00-0.23); BASOPHILS PERCENT AUTO 1 % (0-2); EOSINOPHILS ABSOLUTE AUTO 0.14 K/mm3 (0.00-0.68); EOSINOPHILS PERCENT AUTO 1 % (0-6); Hemoglobin 13.3 g/dL (13.5-17.5); IMMATURE GRAN ABSOLUTE AUTO 0.17 K/mm3 (0.00-0.10); IMMATURE GRAN PERCENT AUTO 2 % (0-1); LYMPHOCYTES ABSOLUTE AUTO 1.82 K/mm3 (0.84-5.20); LYMPHOCYTES PERCENT AUTO 18 % (21-46); MONOCYTES ABSOLUTE AUTO 1.43 K/mm3 (0.16-1.47); MONOCYTES PERCENT AUTO 14 % (4-13); Mean Corpuscular HGB 29.3 pg (26.0-34.0); Mean Corpuscular HGB Conc 34.1 g/dL (31.5-36.5); Mean Corpuscular Volume 86 fL (80-100); Mean Platelet Volume 11.4 fL (9.1-12.4); NEUTROPHILS ABSOLUTE AUTO 6.55 K/mm3 (1.96-9.15); NEUTROPHILS PERCENT AUTO 64 % (41-73); Platelet Count 219 K/mm3 (150-400); RDW Coefficient Variation 12.6 % (11.7-14.2); RDW Standard Deviation 39.5 fL (35.1-46.3); Red Blood Cell Count 4.54 M/mm3 (4.30-5.90); White Blood Cell Count 10.22 K/mm3 (4.00-11.30)
[2020-07-02 05:01] LABS: Anion Gap 8 mmol/L (6-16); Blood Urea Nitrogen 28 mg/dL (8-24); CO2, Blood 24 mmol/L (21-32); Calcium, Blood 8.8 mg/dL (8.5-10.1); Chloride, Blood 102 mmol/L (98-108); Creatinine, Blood 0.97 mg/dL (0.60-1.20); Glomerular Filtration Rate >60 (60-); Glucose, Blood 284 mg/dL (70-99); Potassium, Blood 4.3 mmol/L (3.5-5.5); Sodium, Blood 134 mmol/L (136-145)
--- NOTE | 2020-07-02 18:14 | NUR ---
SHIFT SUMMARY PT WORKED WITH PHYSICAL AND OCCUPATIONAL THERAPY TODAY. PT WAS UP IN CHAIR FOR A LOT OF THE SHIFT. 1-2 PERSON TRANSFER TO CHAIR/BED. PPN INFUSING WITHOUT DIFFICULTY. PT TRIES TO TALK WITH STAFF BUT DIFFICULT TO UNDERSTAND. PT SHAKES HEAD YES/NO FOR SOME QUESTIONS. PLANS FOR PEG TUBE PLACEMENT TOMORROW. NO ACUTE CHANGES THIS SHIFT. CALL LIGHT IN REACH. WILL CONTINUE TO MONITOR AND REPORT TO ONCOMING RN.
--- NOTE | 2020-07-02 20:18 | NUR ---
ASSUMED CARE. AOX3, APHAGIA ABLE TO FORM JUST A HANDFUL OF WORDS WHEN SPEAKING SLOW. YES AND NO ARE HIS MAIN ANSWERS. DOES TRY AND TALK BUT IS UNABLE TO HAVE CLEAR SPEECH, RIGHT SIDE FACIAL DROOP, TONGUE DEVIATES TO THE RIGHT. ORAL CARE PROVIDED. RIGHT ARM FLACCID. RIGHT LEG SLIGHT DORSAL FLEXION AND EXTENTION, ABLE TO LIFT LEG ABOUT AN INCH OFF THE BED. UNABLE TO WRITE CLEAR. NO VISION CHANGES NOTED. DENIES ANY DISCOMFORT. BLOOD SUGAR 301 MEDICATED WITH SLIDING SCALE AND LONG ACTING INSULIN. PPE INFUSING WELL. WILL CONTINUE TO MONITOR. ABLE TO USE CALL LIGHT APPROPRIATLY.
--- NOTE | 2020-07-03 05:19 | NUR ---
SHIFT SUMMARY: NO NEUROLOGICAL CHANGES. STILL HAVING TROUBLE GETTING WORDS TO FORM, CAN SAY A FEW WHEN SPEAKING SLOWLY. DOES HAVE SOME PICTURE BOARD SIGN IN THERE TO HELP WITH SIMPLE NEEDS. WILL ANSWER YES AND NO QUESTIONS. ABLE TO MOVE RIGHT LEG AN INCH OFF THE BED. RIGHT ARM STILL FLACCID. NO CHANGE IN FACIAL DROOP OR TONGUE DEVIATION. PPN CONTINUES TO INFUSE WITH NO DIFFICULTY. MEDICATED FOR HYPERGLYCEMIA OF 301 LAST NIGHT. VS WNL, AFEBRILE. CALL LIGHT IN REACH.
[2020-07-03 05:40] LABS: BASOPHILS ABSOLUTE AUTO 0.09 K/mm3 (0.00-0.23); BASOPHILS PERCENT AUTO 1 % (0-2); EOSINOPHILS ABSOLUTE AUTO 0.01 K/mm3 (0.00-0.68); EOSINOPHILS PERCENT AUTO 0 % (0-6); Hematocrit 40.8 % (37.0-53.0); Hemoglobin 13.7 g/dL (13.5-17.5); IMMATURE GRAN ABSOLUTE AUTO 0.35 K/mm3 (0.00-0.10); IMMATURE GRAN PERCENT AUTO 2 % (0-1); LYMPHOCYTES ABSOLUTE AUTO 1.45 K/mm3 (0.84-5.20); LYMPHOCYTES PERCENT AUTO 10 % (21-46); MONOCYTES ABSOLUTE AUTO 1.43 K/mm3 (0.16-1.47); MONOCYTES PERCENT AUTO 10 % (4-13); Mean Corpuscular HGB 29.6 pg (26.0-34.0); Mean Corpuscular HGB Conc 33.6 g/dL (31.5-36.5); Mean Corpuscular Volume 88 fL (80-100); Mean Platelet Volume 11.9 fL (9.1-12.4); NEUTROPHILS PERCENT AUTO 77 % (41-73); Platelet Count 216 K/mm3 (150-400); RDW Coefficient Variation 12.8 % (11.7-14.2); RDW Standard Deviation 40.7 fL (35.1-46.3); Red Blood Cell Count 4.63 M/mm3 (4.30-5.90); White Blood Cell Count 14.33 K/mm3 (4.00-11.30)
[2020-07-03 05:59] LABS: Bun/Creatinine Ratio 32.3 (12.0-20.0); Calcium, Blood 9.1 mg/dL (8.5-10.1); Creatinine, Blood 1.24 mg/dL (0.60-1.20); Potassium, Blood 5.2 mmol/L (3.5-5.5)
[2020-07-03 15:10] LABS: Influenza A, PCR Negative (NEGATIVE); Influenza B, PCR Negative (NEGATIVE); Resp Syncytial Virus, PCR Negative (NEGATIVE); SARS-Cov-2 (COVID-19) PCR, MMC Negative (NEGATIVE)
--- NOTE | 2020-07-03 15:13 | NUR ---
07/03/20 1513 Delores Suarez History, Chart, Medications and Allergies reviewed before start of procedure.SEE ANESTHESIA RECORD CARE BY . 3-LEAD EKG REVIEWED WITH PHYSICIAN PRIOR TO START OF PROCEDURE.MONITOR INTACT WITH CONTINUOUS PULSE OXIMETRY AND INTERMITTENT BP.O2 VIA N/C INTACT THROUGHOUT SEDATION/PROCEDURE.Bite Block Placed.
--- NOTE | 2020-07-03 15:48 | NUR ---
TRANSFER PT WENT FOR PEG TUBE PLACEMENT AND WAS SENT TO PCU AFTER PROCEDURE. THIS RN GAVE REPORT TO RUTH CUMMINGS. PT'S BELONGINGS WILL BE TAKEN DOWN TO PCU6. PT'S IN ROOM WITH PT.
--- NOTE | 2020-07-03 16:00 | NUR ---
PT BROUGHT TO PCU 6 FROM DAY SURGERY HE WENT INTO AFIB WITH RVR AND COULD NOT PLACE PEG TUBE, WILL GIVE LOPRESSOR ORDERED, DAY SURG CALLED AND GAVE VERBAL ORDER FOR NG PLACEMENT FOR THE PURPOSE OF PEG TUBE WITH DR. MANRIQUE, IS HERE, AND UNDERSTANDS WHAT IS GOING ON. CALL LIGHT IN REACH.
[2020-07-03 16:20] LABS: Bun/Creatinine Ratio 34.1 (12.0-20.0); Creatinine, Blood 1.29 mg/dL (0.60-1.20); Potassium, Blood 5.3 mmol/L (3.5-5.5)
--- NOTE | 2020-07-03 17:04 | NUR ---
PT HAD NG PLACED FOR PROCEDURE BY DR. MANRIQUE, PLACEMENT VERIFIED BY PULLING GASTRIC FLUIDS BACK. PT WILL BE LEAVING FOR PEG TUBE PLACEMENT ANY TIME. CALL LIGHT IN REACH.
--- NOTE | 2020-07-03 18:43 | NUR ---
PT RETURNED FROM PEG TUBE PLACEMENT, DOING OK, V.S. STABLE, HEART RATE IN THE 140'S, DR. BULLOCK WAS CALLED AND RECIEVED ORDER FOR DILTIAZEM PUSH. PEG TUBE LOOKS GOOD, CALL LIGHT IN REACH.
--- NOTE | 2020-07-03 22:03 | NUR ---
CARE ASSUMTION NOTE PT LATHARGIC, AROUSES TO VERBAL STIMULI. PT IS APHAGIC. A-FIB AT 130'S AND GAVE A 15MG CARDIZEM IV PUSH. HEART RATE WENT DOWM TO 80-90'S. INCREASED BACK UP T0 130'S, CALLED CLIN NURSE SPEC KORTNEY TO NOTIFY. CLIN NURSE SPEC WITH NO NEW ORDERS AT THIS TIME. PT IS ON 3L O2 BY NC. PT BED REST. WILL CONTNUE TO MONITOR.
[2020-07-03 22:29] LABS: Calcium, Blood 8.9 mg/dL (8.5-10.1); Creatinine, Blood 1.86 mg/dL (0.60-1.20); Potassium, Blood 6.5 mmol/L (3.5-5.5)
[2020-07-04 03:31] LABS: BASOPHILS PERCENT AUTO 1 % (0-2); EOSINOPHILS PERCENT AUTO 0 % (0-6); Hematocrit 40.7 % (37.0-53.0); Hemoglobin 13.4 g/dL (13.5-17.5); IMMATURE GRAN ABSOLUTE AUTO 0.58 K/mm3 (0.00-0.10); IMMATURE GRAN PERCENT AUTO 3 % (0-1); LYMPHOCYTES ABSOLUTE AUTO 2.38 K/mm3 (0.84-5.20); LYMPHOCYTES PERCENT AUTO 13 % (21-46); MONOCYTES ABSOLUTE AUTO 1.64 K/mm3 (0.16-1.47); MONOCYTES PERCENT AUTO 9 % (4-13); Mean Corpuscular HGB 28.9 pg (26.0-34.0); Mean Corpuscular HGB Conc 32.9 g/dL (31.5-36.5); Mean Corpuscular Volume 88 fL (80-100); Mean Platelet Volume 11.7 fL (9.1-12.4); NEUTROPHILS ABSOLUTE AUTO 13.99 K/mm3 (1.96-9.15); NEUTROPHILS PERCENT AUTO 75 % (41-73); NRBC ABSOLUTE 0.07 K/mm3 (0.00-0.02); NRBC Auto 0.4 /100 WBC (0.0-0.2); Platelet Count 169 K/mm3 (150-400); RDW Standard Deviation 41.4 fL (35.1-46.3); Red Blood Cell Count 4.64 M/mm3 (4.30-5.90); White Blood Cell Count 18.69 K/mm3 (4.00-11.30)
[2020-07-04 03:49] LABS: Anion Gap 11 mmol/L (6-16); Blood Urea Nitrogen 60 mg/dL (8-24); Bun/Creatinine Ratio 33.9 (12.0-20.0); CO2, Blood 18 mmol/L (21-32); Calcium, Blood 9.2 mg/dL (8.5-10.1); Chloride, Blood 105 mmol/L (98-108); Creatinine, Blood 1.77 mg/dL (0.60-1.20); Glomerular Filtration Rate 39 (60-); Glucose, Blood 259 mg/dL (70-99); Phosphorus, Blood 5.5 mg/dL (2.5-4.9); Potassium, Blood 5.4 mmol/L (3.5-5.5); Sodium, Blood 134 mmol/L (136-145)
--- NOTE | 2020-07-04 06:54 | NUR ---
SHIFT SUMMARY PT HAS BEEN VERY SLEEPY THROUGHOUT SHIFT. 3L NC SATS @ >92%. A-FIB @ 80-S -130'S. SCHEDULED IV CARDIZEM GIVEN X1 & PRN IV LOPRESSOR GIVEN X2 THIS SHIFT. BEDREST. SEEN BY RAIL SPLITTER LAST NIGHT DUE TO HIGH POTASSIUM AND HIGH HEART RATE. INFUSED 500 ML BOLUS OF NS, CALCIUM GLUCONATE AND GIVEN INSULIN AND DEXTROSE BOLUS PER ORDERS.
[2020-07-04 10:43] LABS: Blood, Urine Neg (Neg); Glucose Qualitative, Urine Neg (Neg); Ketones, Urine 3+ (Neg); Leukocyte Esterase, Urine 1+ (Neg); Nitrite, Urine Neg (Neg); Protein, Urine 2+ (Neg); Urobilinogen, Urine 2+ (Normal)
[2020-07-04 10:50] LABS: Appearance, Urine Hazy (Clear); Bilirubin, Urine 1+ (Neg); Color, Urine Yellow (P-Yellow)
[2020-07-04 10:51] LABS: Bacteria Rare /hpf; Red Blood Cells, Urine 0-2 /hpf (0-2); Squamous Epithelial Cells Not Seen /hpf (Few); White Blood Cells, Urine 0-2 /hpf (0-5)
--- NOTE | 2020-07-04 16:06 | NUR ---
INITIAL AND BRIEF PAL CARE VISIT - Joint visit made with Dr Rubi to pt's room. Pt's is at the bedside and RN tending to pt during our visit. Medical student was also present. had reviewed current status and concerning developments, current plan of care with . Dr reviewed code status and pt's wishes with . Pt was extremely dyspnic and not participatory in the conversation. He had a deeply furrowed brow and appeared restless and anxious, although not awake and eyes remained closed except for a flutter of eye lids at times. Pt had nonverbal indicators of pain noted. Radiology dept waiting outside room for stat CT ordered this afternoon. Pt is new to me and and I am completely unfamiliar with his medical history or prior level of function outside of Dr's report and 's statement, "he was out chopping wood the day this happened". She spoke of his rapid recovery from heart surgery a number of years ago. I was present at Dr's request. struggled with making a decision on pt's code status but in the end stated pt would not want to be intubated or be resuscitated if his heart were to stop and he was unable to breathe on his own despite all care that we would attempt to prevent that. and I reasuured pt's that we will cont all care to determine and treat his current acute issues. Pt's was headed home, an hour's drive away. She does not have a cell phone with her and she asked that any new findings or changes be called to her on her home phone. All of above relayed to pt's RN and orders for DNR status entered per VO of Dr Rubi.
--- NOTE | 2020-07-04 18:49 | NUR ---
PT LAYING IN BED OPENS EYES AT TIMES BUT LOOKS VERY TIRED. IS APHAGIC, ATTEMPTS TO SPEAK, AND BECOMES FRUSTRATED WHEN HE CAN'T GET IT OUT, LUNGS ARE CLEAR IN UPPER LOBES, DIM IN BASES, WET IN UPPER BRONCHIAL, SUCTION WITH YANKAR NEEDED, IS ON 4 LITERS OF 02 VIA N.C. HRIRR, TELE IN PLACE RUNNING AFIB IN THE 130'S, EDEMA NOTED TO RIGHT ARM AND RIGHT LEG, IV SITE IS CLEAR AND PATENT TO LFA, BTX4, INCONT OF URINE AND STOOL, ATTENDS IN PLACE, SKIN C/W/D, IS ABLE TO WIGGLE BOTH FEET, MOVES LEFT ARM, RIGHT ARM IS FLACID, KEEPS EYES CLOSED MOST OF THE TIME. CALL LIGHT IN REACH.
--- NOTE | 2020-07-04 18:56 | NUR ---
PT IS DETERIORATING, RESP ARE IN UP TO THE 30'S, HE WAS STARTED ON TUBE FEEDS AT 25MLS/HR, IS WORKING HARD, RIGHT LEG AND ARM ARE MORE SWOLLEN, U/S WAS DONE, AND SOME SUPERFICIAL CLOTS WERE FOUND, NOTIFIED, CT OF HEAD WAS DONE, READ TO DR CARBAJAL, SHE SPOKE WITH HIS VIA PHONE, PT HAS BEEN MADE COMFORT CARE, HAS BEEN TURNED AND CHANGED NEEDED. FAMILY WAS NOTIFIED THEY MAY COME IN AND ARE HERE, NO FURTHER CHANGES, CALL LIGHT IN REACH.
--- NOTE | 2020-07-04 19:30 | NUR ---
UPDATE RN WAS CALLED INTO ROOM BY FAMILY. PATIENT WAS HAVING GASPING BREATHS VERY SPARATICALLY. TELE NOTIFIED RN THAT PATIEN'S HEART RATE WAS BEGINNING TO TREND DOWN AT APPROX 191. AT APPROX 192 NO BREATH SOUNDS WERE HEARD AND NO HEART BEAT WAS HEARD BY RN. AND SEVERAL FAMILY MEMBERS IN ROOM WITH PATIENT AT THIS TIME. OFF GOING RUTH LUI NOTIFIED DR CARBAJAL AT APPROX 192 WELL. FAMILY IN ROOM WITH PATIENT AT THIS TIME.
--- NOTE | 2020-07-04 20:30 | NUR ---
UPDATE PATIENT'S FAMILY LEFT. PATIENT'S STATED SHE WOULD LIKE TO HAVE CHAPEL OF THE [facility] TAKE THE PATIENT. PATIENT'S TOOK PATIENT'S BARRERA WRIST WATCH, HIS GLASSES/GLASSES CASE, AND HIS SQUEEZE BALL HOME WITH HER. POST MORTEM CARE PROVIDED TO PATIENT.
--- NOTE | 2020-07-04 21:37 | NUR ---
UPDATE [facility] ARRIVED AND ASSUMED CARE OF PATIENT AT APPROX 2058.
== END 2020-07-04 21:00 | DRG 61 ==
LOC: ER 21:46 → ERHOLD 06-24 01:09 → ICUE 06-24 02:15 → MEDS 06-24 07:46 → ICUE 06-24 07:47 → MEDS 06-26 19:45 → PCU 07-03 15:38
PROVIDERS: Hospitalist; Internal Medicine; Internal Medicine Gastroenterology; Student in an Organized Health Care Education/Training Program; ADMIT Family Medicine
PROC: 3E05317 Introduction of Other Thrombolytic into Peripheral Artery, Percutaneous Approach (ICD-10-PCS; 2020-07-03)
PROC: 0DH63UZ Insertion of Feeding Device into Stomach, Percutaneous Approach (ICD-10-PCS; 2020-07-03)
PROC: 0DH68UZ Insertion of Feeding Device into Stomach, Via Natural or Artificial Opening Endoscopic (ICD-10-PCS; principal; 2020-07-03 08:30)
DX: I63.512 Cerebral infarction due to unspecified occlusion or stenosis of left middle cerebral artery (principal); A41.9 Sepsis, unspecified organism; I60.9 Nontraumatic subarachnoid hemorrhage, unspecified; J69.0 Pneumonitis due to inhalation of food and vomit; R65.20 Severe sepsis without septic shock; E87.1 Hypo-osmolality and hyponatremia; G81.91 Hemiplegia, unspecified affecting right dominant side; I82.401 Acute embolism and thrombosis of unspecified deep veins of right lower extremity; I82.890 Acute embolism and thrombosis of other specified veins; Z20.822 Contact with and (suspected) exposure to COVID-19; D64.9 Anemia, unspecified; E03.9 Hypothyroidism, unspecified; E11.22 Type 2 diabetes mellitus with diabetic chronic kidney disease; E11.69 Type 2 diabetes mellitus with other specified complication; E78.5 Hyperlipidemia, unspecified; E87.5 Hyperkalemia; I25.10 Atherosclerotic heart disease of native coronary artery without angina pectoris; I48.91 Unspecified atrial fibrillation; K21.9 Gastro-esophageal reflux disease without esophagitis; I12.9 Hypertensive chronic kidney disease with stage 1 through stage 4 chronic kidney disease, or unspecified chronic kidney disease; N18.30 Chronic kidney disease, stage 3 unspecified; R13.10 Dysphagia, unspecified; R29.810 Facial weakness; R47.01 Aphasia; Z87.891 Personal history of nicotine dependence; Z95.1 Presence of aortocoronary bypass graft
CPT/HCPCS: 0241U; 36415; 49440; 70450; 70496; 70498; 70551; 71045; 74230; 80048; 80053; 80061; 80069; 81001; 82947; 83036; 83605; 83735; 84100; 85025; 85610; 87040; 87086; 92523; 92526; 92610; 92611; 92977; 93005; 93010; 93306; 93971; 96374-59; 97110; 97112; 97116; 97162; 97166; 97530; 97535; 99152; 99153; 99285-25; A9270; C1769; G0378; G0480; J0360; J0456; J0610; J0690; J0696; J1650; J1815; J2370; J2405; J2704; J2997; J3010; J7030; J7040; J7050; J7120; Q9967